=== PATIENT | female | born 1955 | race Caucasian/White ===

== ENCOUNTER → 2017-02-01 | Outpatient (CLI) | payer OTHER ==
[~2017-02-01] MED LIST: AMLO5TAB4 PO; ATEN-175 PO; LORA-741 PO; MUSCLE RELAXER; PROC1TAB5 PO; [UNRECOGNIZED DRUG - REMARK] PO
[2017-02-01 12:12] LABS: BASO % 0.3 %; BASO ABS # 0.02 K/uL (0-0.2); COMPLETE YES; EOS % 2.4 %; HEMATOCRIT 43.9 % (37-47); IG% 0.1 %; LYMPH % 25.4 %; LYMPH ABS # 1.76 K/uL (1.2-3.4); MEAN CELL VOLUME 88.7 fL (80-100); MEAN CORPUSCULAR HEMOGLOBIN 30.1 pg (25-34); MEAN CORPUSCULAR HGB CONC 33.9 g/dl (32-36); MEAN PLATELET VOLUME 11.2 fL (7.4-10.4); MONO % 9.2 %; NEUT % 62.6 %; PLATELET COUNT 213 K/uL (130-400); RED BLOOD COUNT 4.95 M/uL (4.2-5.4); WHITE BLOOD COUNT 6.94 K/uL (4.8-10.8)
[2017-02-01 12:47] LABS: ALT/SGPT 25 U/L (12-78); BLOOD UREA NITROGEN 20 mg/dl (7-18); BUN/CREATININE RATIO 20.6 (10-20); CALCIUM 9.7 mg/dl (8.5-10.1); CARBON DIOXIDE 28 mmol/L (21-32); CHLORIDE 110 mmol/L (98-107); CREATININE 0.95 mg/dl (0.60-1.20); GLUCOSE 104 mg/dl (70-99); POTASSIUM 3.9 mmol/L (3.5-5.1); SODIUM 143 mmol/L (136-145)
[2017-02-01 12:49] LABS: ALB/GLOB RATIO 0.9 (0.9-2); ALKALINE PHOSPHATASE 49 U/L (45-117); AST/SGOT 13 U/L (15-37)
== END | disposition home or self-care (01) ==
LOC: C.LABPVFM 08:03
PROVIDERS: ATTEND Nurse Practitioner Family
DX: C19 Malignant neoplasm of rectosigmoid junction (principal)

== ENCOUNTER → 2017-02-08 | Outpatient (CLI) | payer OTHER ==
[~2017-02-08] MED LIST changes: +GADOXETATE DISODIUM (NON-WT BASED PROCEDURE) IV PRN
--- NOTE | 2017-02-08 10:29 | DIAGNOSTIC IMAGING REPORT ---
MRI OF THE ABDOMEN COMBO CLINICAL HISTORY: Colorectal carcinoma. Follow-up left lobe of the liver lesion. COMPARISON STUDY: Abdominal CT scan dated 10/19/2016. Abdominal MRI dated 11/08/2016 and 03/01/2014. TECHNIQUE: MRI of the abdomen is performed transverse T1 and T2-weighted sequences in the axial and coronal planes. Contrast enhanced sequences were acquired following the IV administration of 10 cc of Eovist. Subtraction imaging was utilized. The examination is degraded by motion artifact. FINDINGS: Lower chest: No pleural effusion is identified. The heart is top normal in size. There is a small hiatal hernia. Liver: The liver is mildly enlarged, measuring 19 cm in length. The liver is normal in contour and signal intensity. No intrahepatic biliary ductal dilatation is seen. There is a 1.3 cm T2 hyperintense and arterially hypervascular lesion identified in the medial aspect of hepatic segment VII. This is best seen on axial arterial phase image #47. This does not retain Eovist and is unchanged from the 2014 examination. The appearance is consistent with a small hemangioma. There is a 1.5 cm T2 faintly hyperintense, T1 isointense, and arterially hypervascular lesion identified in hepatic segment Darin on image #36 of the early arterial phase sequence. This is unchanged from the October 30, 2016 studies and was not clearly seen on the 2014 MRI. This lesion retains Eovist on the delayed series. No new hepatic lesions are identified. The hepatic veins and portal veins are patent. Gallbladder: Cholelithiasis is noted. There is no MRI evidence of cholecystitis. Spleen: Normal in size and signal intensity. A 1.4 cm T2 hyperintense and hypervascular lesion in the medial spleen is unchanged from 2014 and likely represents a small hemangioma. Pancreas: Unremarkable. Adrenal glands: Unremarkable. Kidneys: The right kidney is surgically absent. There is no evidence of recurrent or residual lesion in the right renal fossa. The left kidney is normal in size and without hydronephrosis. The left kidney enhances homogeneously. No enhancing left renal lesion is seen. Abdominal aorta: Normal in course and caliber. Bowel: Visualized portions of the small bowel and colon show no evidence of obstruction. There is moderate colonic fecal retention. Peritoneum: There is no abdominal ascites. Lymphadenopathy: None. Skeletal structures: Visualized skeletal structures times are normal marrow signal intensity. IMPRESSION: 1. There is unchanged appearance of a 1.4 cm hypervascular lesion in the left hepatic lobe as compared to 11/08/2016. The enhancement kinetics are most typical for a focal nodular hyperplasia. Other etiologies are considered unlikely given the stability. 1 additional follow-up examination in 12 months time is recommended. 2. A 1.3 cm lesion in the right lobe is unchanged from 2014 and typical in appearance for a small hemangioma. 3. No new hepatic lesions are identified. 4. Cholelithiasis. 5. The right kidney is surgically absent. There is no evidence of metastatic disease in the abdomen. Electronically signed by: Adeel Mario M.D. 02/08/2017 10:28 AM Dictated Date/Time: 02/08/2017 10:14 AM
== END | disposition home or self-care (01) ==
LOC: C.MRI 08:40
PROVIDERS: ATTEND Nurse Practitioner Family
DX: C19 Malignant neoplasm of rectosigmoid junction (principal); C64.1 Malignant neoplasm of right kidney, except renal pelvis; K76.9 Liver disease, unspecified; K80.20 Calculus of gallbladder without cholecystitis without obstruction; Z90.5 Acquired absence of kidney

== ENCOUNTER → 2017-07-05 | Outpatient (CLI) | payer OTHER ==
[~2017-07-05] MED LIST changes: -GADOXETATE DISODIUM (NON-WT BASED PROCEDURE) IV PRN
--- NOTE | 2017-07-08 13:48 | MAMMOGRAPHY REPORT ---
BILATERAL DIGITAL SCREENING MAMMOGRAM TOMOSYNTHESIS WITH CAD: 07/05/2017 CLINICAL HISTORY: Routine screening. TECHNIQUE: Breast tomosynthesis in addition to standard 2D mammography was performed. Current study was also evaluated with a Computer Aided Detection (CAD) system. COMPARISON: Comparison is made to exams dated: 06/14/2016 ultrasound biopsy, 06/14/2016 mammogram, 016 mammogram, 06/06/2016 mammogram, 04/19/2015 mammogram, and 04/13/2014 mammogram - [facility]. BREAST COMPOSITION: There are scattered areas of fibroglandular density in both breasts. FINDINGS: No suspicious masses, calcifications, or areas of architectural distortion are noted in ei ther breast. There has been no significant interval change compared to prior exams. Small round/oval circumscribed benign-appearing masses bilaterally are not significantly changed. A biopsy marker cl ip is again noted in the right lower inner quadrant. Scattered bilateral benign-appearing calcificat ions are also stable. IMPRESSION: ACR BI-RADS CATEGORY 2: BENIGN There is no mammographic evidence of malignancy. A 1 year screening mammogram is recommended. The pa tient will receive written notification of the results. Approximately 10% of breast cancers are not detected with mammography. A negative mammographic report should not delay biopsy if a clinically suggestive mass is present. Margie Ochoa M.D. ah/:07/06/2017 14:48:44 Certified Nurses Aide: Raj FERNANDEZ)([place]), [facility] letter sent: Normal 1/2 BI-RADS Code: ACR BI-RADS Category 2: Benign
== END | disposition home or self-care (01) ==
LOC: C.MAMM 11:41
PROVIDERS: ATTEND Nurse Practitioner
DX: Z12.31 Encounter for screening mammogram for malignant neoplasm of breast (principal)

== ENCOUNTER → 2018-02-28 | Outpatient (CLI) | payer OTHER ==
[2018-02-28 18:04] LABS: ALBUMIN 3.5 gm/dl (3.4-5.0); ALT/SGPT 24 U/L (12-78); AST/SGOT 14 U/L (15-37); BLOOD UREA NITROGEN 26 mg/dl (7-18); CALCIUM 10.2 mg/dl (8.5-10.1); CARBON DIOXIDE 30 mmol/L (21-32); CREATININE 1.26 mg/dl (0.60-1.20); GLUCOSE 118 mg/dl (70-99); POTASSIUM 3.6 mmol/L (3.5-5.1); SODIUM 140 mmol/L (136-145)
[2018-02-28 18:05] LABS: ALKALINE PHOSPHATASE 57 U/L (45-117); TOTAL PROTEIN 7.2 gm/dl (6.4-8.2)
[2018-02-28 18:09] LABS: BASO % 0.4 %; BASO ABS # 0.03 K/uL (0-0.2); EOS ABS # 0.23 K/uL (0-0.5); HEMATOCRIT 42.7 % (37-47); HEMOGLOBIN 14.6 g/dL (12.0-16.0); IG# 0.02 K/uL (0.00-0.02); LYMPH % 32.4 %; LYMPH ABS # 2.49 K/uL (1.2-3.4); MEAN CELL VOLUME 89.3 fL (80-100); MEAN CORPUSCULAR HEMOGLOBIN 30.5 pg (25-34); MEAN CORPUSCULAR HGB CONC 34.2 g/dl (32-36); MEAN PLATELET VOLUME 11.3 fL (7.4-10.4); MONO % 7.6 %; MONO ABS # 0.58 K/uL (0.11-0.59); NEUT % 56.3 %; NEUT ABS # 4.33 K/uL (1.4-6.5); PLATELET COUNT 250 K/uL (130-400); RED CELL DISTRIBUTION WIDTH SD 45.7 fL (36.4-46.3); WHITE BLOOD COUNT 7.68 K/uL (4.8-10.8)
== END | disposition home or self-care (01) ==
LOC: C.LABPVFM 13:26
PROVIDERS: ATTEND Nurse Practitioner Family
DX: C19 Malignant neoplasm of rectosigmoid junction (principal)

== ENCOUNTER → 2018-03-07 | Outpatient (CLI) | payer OTHER ==
[~2018-03-07] MED LIST changes: +GADOXETATE DISODIUM (NON-WT BASED PROCEDURE) IV PRN
--- NOTE | 2018-03-07 14:44 | DIAGNOSTIC IMAGING REPORT ---
MRI LIVER COMBO CLINICAL HISTORY: Colorectal cancer. COMPARISON STUDY: Liver MRI February 08, 2017. TECHNIQUE: Utilizing a 1.5 Jaqueline magnet and dedicated coil, multiplanar, multiecho imaging of the abdomen was performed pre and postcontrast administration. Post contrast imaging was performed utilizing dynamic enhancement with 20 minute delayed phase imaging. Intravenous injection of 10 cc of Eovist was uneventful. FINDINGS: Liver morphology is normal. A 1.3 cm hypervascular segment 7 hepatic lesion is unchanged from earlier exams and consistent with a hemangioma. This is benign. A 2 cm hypervascular left hepatic lobe lesion has increased in size since MRI of February 08, 2017. This lesion measured 1.5 cm on previous exam. This lesion is nearly isointense to background liver on the T2-weighted sequences and is hyperintense in comparison to the background liver parenchyma on the 20 minute delayed phase images and may contain a central scar. No new hepatic lesions are present. There is no biliary or pancreatic ductal dilatation. A 1.4 cm hypervascular splenic lesion is unchanged from earlier exams and likely reflects a hemangioma. No abdominal lymphadenopathy or ascites is present. The adrenal glands and pancreas are unremarkable. Gallstones are noted within the gallbladder. There is no pericholecystic infiltration or fluid. The right kidney is surgically absent. IMPRESSION: 1. 2 cm hypervascular left hepatic lobe lesion, increased in size since MRI of February 08, 2017 when it measured 1.5 cm. Despite interval increase in size, the imaging characteristics are highly suggestive of focal nodular hyperplasia. This lesion does not represent metastatic colon cancer. 2. No new hepatic lesions. 3. Redemonstration of a right hepatic lobe hemangioma. 4. Cholelithiasis. Electronically signed by: Celso Cheung M.D. 03/07/2018 2:42 PM Dictated Date/Time: 03/07/2018 2:22 PM
== END | disposition home or self-care (01) ==
LOC: C.MRI 12:54
PROVIDERS: ATTEND Nurse Practitioner Family
DX: C19 Malignant neoplasm of rectosigmoid junction (principal); C64.1 Malignant neoplasm of right kidney, except renal pelvis

== ENCOUNTER → 2018-06-06 | Outpatient (CLI) | payer OTHER ==
[~2018-06-06] MED LIST changes: -GADOXETATE DISODIUM (NON-WT BASED PROCEDURE) IV PRN; +PROC10TA PO; -PROC1TAB5 PO
[2018-06-06 11:25] LABS: BASO % 0.4 %; BASO ABS # 0.03 K/uL (0-0.2); EOS % 2.9 %; EOS ABS # 0.21 K/uL (0-0.5); HEMOGLOBIN 15.1 g/dL (12.0-16.0); IG# 0.01 K/uL (0.00-0.02); LYMPH % 28.5 %; LYMPH ABS # 2.06 K/uL (1.2-3.4); MEAN CELL VOLUME 88.5 fL (80-100); MEAN CORPUSCULAR HEMOGLOBIN 30.4 pg (25-34); MEAN CORPUSCULAR HGB CONC 34.3 g/dl (32-36); MEAN PLATELET VOLUME 11.3 fL (7.4-10.4); MONO ABS # 0.58 K/uL (0.11-0.59); NEUT % 60.1 %; NEUT ABS # 4.33 K/uL (1.4-6.5); PLATELET COUNT 236 K/uL (130-400); RED CELL DISTRIBUTION WIDTH CV 13.7 % (11.5-14.5); RED CELL DISTRIBUTION WIDTH SD 44.1 fL (36.4-46.3); WHITE BLOOD COUNT 7.22 K/uL (4.8-10.8)
[2018-06-06 11:45] LABS: ALBUMIN 3.8 gm/dl (3.4-5.0); ALKALINE PHOSPHATASE 54 U/L (45-117); ALT/SGPT 19 U/L (12-78); AST/SGOT 13 U/L (15-37); BLOOD UREA NITROGEN 25 mg/dl (7-18); CALCIUM 9.9 mg/dl (8.5-10.1); CARBON DIOXIDE 28 mmol/L (21-32); CREATININE 1.01 mg/dl (0.60-1.20); GLUCOSE 92 mg/dl (70-99); POTASSIUM 3.5 mmol/L (3.5-5.1); SODIUM 140 mmol/L (136-145); TOTAL PROTEIN 7.6 gm/dl (6.4-8.2)
== END | disposition home or self-care (01) ==
LOC: C.LABSPEC 10:45
PROVIDERS: ATTEND Nurse Practitioner Family
DX: C19 Malignant neoplasm of rectosigmoid junction (principal)